=== PATIENT | female | born 1950 | race Caucasian/White ===

== ENCOUNTER 2023-12-17 17:57 | Emergency (ER) | payer OTHER, SELFPAY ==
[2023-12-17] VITALS (8 sets, daily range): BP systolic 153–175; BP diastolic 73–96; BMI 33.6
[2023-12-17 18:20] LABS: % Basophils 0.4 % (0-2); % Eosinophils 3.2 % (0-6); % Immature Granulocytes 0.3 % (0-0.5); % Lymphocytes 35.2 % (20.5-51.1); % Monocytes 9.3 % (1.7-9.3); % Neutrophils 51.6 % (42.2-75.2); Absolute Eosinophils 0.3 10^3/uL (0-0.7); Absolute Lymphocytes 2.8 10^3/uL (1.2-3.4); Absolute Monocytes 0.7 10^3/uL (0.1-0.6); Absolute Neutrophils 4.1 10^3/uL (1.4-6.5); Hematocrit 39.4 % (37.0-47.0); Hemoglobin 13.2 g/dL (12.0-16.0); Mean Corp Hgb Conc. 33.5 g/dL (33.0-37.0); Mean Corpuscular Hgb 26.4 pg (27.0-31.0); Mean Corpuscular Volume 78.8 fL (81.0-99.0); Nucleated Red Blood Cells % 0 %; Platelet Count 232 10^3/uL (130-400); Red Cell Dist. Width 14.1 % (11.5-14.5); White Blood Cell Count 7.9 10^3/uL (4.8-10.8)
[2023-12-17 18:33] LABS: ALT (SGPT) 20 U/L (0-35); AST (SGOT) 28 U/L (14-36); Albumin 4.2 g/dl (3.5-5.0); Alkaline Phosphatase 106 U/L (38-126); Blood Urea Nitrogen 18 mg/dl (7-17); Calcium 9.4 mg/dl (8.4-10.2); Carbon Dioxide 25 mmol/L (22-30); Chloride 106 mmol/L (98-107); Glucose 95 mg/dl (70-99); Sodium 143 mmol/L (135-145); Total Bilirubin 0.5 mg/dl (0.2-1.3); eGFR > 60.00
[2023-12-17 19:49] LABS: Urine Albumin Trace (Neg - Trace); Urine Bilirubin Negative (Negative); Urine Character Clear (Clear); Urine Color Yellow; Urine Glucose Negative (Negative); Urine Ketone Negative (Negative); Urine Leukocyte 1+ (Negative); Urine Nitrite Negative (Negative); Urine Occult Blood 2+ (Negative); Urine Specific Gravity 1.025 (<1.030); Urine Urobilinogen Negative (Neg - 1+)
[2023-12-17 20:05] LABS: Urine Bacteria Moderate (Negative); Urine Calcium Oxalate Crystals Present; Urine Mucus Many; Urine Squamous Cell >30 /LPF (Few)
[2023-12-17] MEDS: TORADOL 15 MG IV (21:35)
--- NOTE | 2023-12-17 23:13 | ED.GENMED ---
History of Present Illness
General
Chief Complaint: Abdominal Pain
Source: patient
Time Seen by Provider: 12/17/23 20:29
History of Present Illness
History of Present Illness:
73-year-old female presents complaining of right flank and right lower abdominal pain starting last evening. Pain is sharp in nature without associated nausea or vomiting. No urinary symptoms. Seen by family doctor today and sent here for
possible appendicitis versus kidney stone. She has never had a kidney stone. She denies a cough pain or shortness of breath. No other complaints
Phy Exam
Physical Exam
Physical Exam:
General: Well-appearing female no acute respiratory distress
HEENT: Normocephalic atraumatic
Heart: Regular rate and rhythm no murmurs
Lungs: Clear no wheeze
Abdomen soft tender to slightly to the right lower quadrant and right costovertebral angle. No guarding rebound normal bowel sounds nondistended extremities: No cyanosis or edema
Skin: Warm no rash
Course
Orders/Labs/Results
Orders:
Orders
12/17/23 18:14
CMP [Comprehensive Metabolic Panel] Urgent
Complete Blood Count/With Diff Urgent
12/17/23 19:35
Urinalysis Reflex To Culture Urgent
Date Specimen was Collected: 12/17/23
Time Specimen was Collected: 19:29
Urine Microscopic Reflex Cult Urgent
Urine Culture Urgent
BERTO Source: U
Specimen Description:
Date Specimen was Collected: 12/17/23
Time Specimen was Collected: 19:29
12/17/23 21:17
CT Abd/pel Without Iv Or Oral Urgent
Comment:
Reason For Exam: right flank and lower quadrant pain
12/17/23 21:26
Ketorolac [Toradol] 15 mg IV NOW STA
Abnormal Lab Results
12/17/23 12/17/23
18:14 19:35
MCV 78.8 L fL
(81.0-99.0)
MCH 26.4 L pg
(27.0-31.0)
Absolute Monos (auto) 0.7 H 10^3/uL
(0.1-0.6)
BUN 18 H mg/dl
(7-17)
Ur Occult Blood Reflex 2+ A
(Negative)
Leukocyte Esterase Rfl 1+ A
(Negative)
Urine RBC 3-6 A /HPF
(0-2)
Urine Bacteria (Reflex) Moderate A
(Negative)
12/17/23 18:14
12/17/23 18:14
Vital Signs
Initial and Last Documented VS:
Initial Vital Signs
Temp Pulse Resp BP Pulse Ox
97.6 F 68 18 175/96 97
12/17/23 18:00 12/17/23 18:00 12/17/23 18:00 12/17/23 18:00 12/17/23 18:00
Last Documented Vital Signs
Temp Pulse Resp BP Pulse Ox
97.7 F 69 20 153/88 97
12/17/23 19:49 12/17/23 22:10 12/17/23 19:27 12/17/23 23:00 12/17/23 19:49
MDM/Problems Addressed
Differential Diagnosis Includes:
Abdominal pain. Consider appendicitis was renal colic versus constipation labs reviewed. Normal white count. Urinalysis with
2+ blood and moderate bacteria however there is greater than 30 squamous cells. Without obvious urinary symptoms could be contaminated specimen will hold off on treating for UTI. CT of the abdomen was performed given the hematuria to evaluate for
kidney stone. CT overall was negative for acute finding. There was several bilateral bibasilar pulmonary nodules that are measuring about 1 cm. The patient was notified of this and was advised to follow-up with her family doctor regarding this.
This is not the source of her abdominal pain however. Patient expresses her desire to go home which I think is reasonable. Recommend ibuprofen or Tylenol for pain.
*Critical Care Note
Total Time (30-74mins, 75-104mins- exclusive of procedures): Not Applicable
ED Attending Note
-
Portions of this chart may have been created with voice recognition software.� Occasional wrong word or��sound alike� substitutions may have occurred due to the inherent limitations of voice recognition software.
Discharge Plan
Departure
Patient Disposition: Home (Routine Discharge)
Date of Disposition: 12/17/23
Time of Disposition: 23:16
Patient with high blood pressure during this ER visit?: No
Discharge Problem:
Abdominal pain, Lung nodule
Instructions: Abdominal Pain
Referrals:
David Mccray DO [Family Provider] -
Activity Restrictions/Additional Instructions:
Please use ibuprofen or Tylenol for pain. Stay hydrated. Return here for increasing pain vomiting fever or other concerning finding. As discussed, there are some lung nodules noted on CT scan today. Please follow-up with your family doctor
regarding this.
Interventions
Interventions:
*Risk Screen - Suicide Last Done: 12/17/23 19:46
*General Assessment Last Done: 12/17/23 19:46
*Neglect/Abuse Screening Last Done: 12/17/23 19:46
*ED COVID-19 Vaccine History Last Done: 12/17/23 19:46
VA-Ddjrgj-Ifjjticywt Assessment Last Done: 12/17/23 19:46
Discharge Date and Time
Print Language: SWISS
--- NOTE | 2023-12-22 08:56 | OID.L.PAT ---
Pulmonary Nodule Pat Letter
- -
12/22/23
DEJAN GONZALEZ
[address]
[place], [place]
Darci WYLIE,
A pulmonary nodule was seen on an imaging study done by [facility]. This was reviewed by the [facility] Pulmonary Nodule Advisory Board and the following recommendation was made:
Recommendation: PET scan now and follow up with a Transmission Maintenance Supervisor
If you have any questions, please do not hesitate to contact your primary care physician. If you are in need of a Physician, you can go to [email or web address] and click on 'Find a Provider'. Type 'Family Medicine' in the search.
Oncology Nurse Navigator
[facility]
[phone]
--- NOTE | 2023-12-22 08:56 | OID.L.REC ---
Pulmonary Nodule Follow Up
- Recommendation
12/22/23
Pulmonary Nodule Review Recommendations
Your patient, DEJAN GONZALEZ, had a pulmonary nodule seen on an imaging study done on 12/17/23 in the [facility] Emergency Room.
This was reviewed by the [facility] Pulmonary Nodule Advisory Board and the following recommendation was made:
Recommendation: PET scan now and follow up with a Hopper Filler
If you have any questions please do not hesitate to contact us.
Sincerely,
Oncology Nurse Navigator
[facility]
[phone]
== END 2023-12-17 23:25 | disposition home or self-care (01) ==
LOC: EMR 17:57
PROVIDERS: Emergency Medicine; Student in an Organized Health Care Education/Training Program; EMERGENCY PHYSICIAN Emergency Medicine; FAMILY PHYSICIAN Family Medicine
DX: R10.31 Right lower quadrant pain (principal); R91.8 Other nonspecific abnormal finding of lung field
CPT/HCPCS: 99284; 74176; 80053; 81003; 81015; 85025; 87086

== ENCOUNTER → 2024-01-13 06:34 | Outpatient (REF) | payer OTHER, SELFPAY | LOC: RAD 06:34 | PROVIDERS: ATTENDING PHYSICIAN Internal Medicine Critical Care Medicine; FAMILY PHYSICIAN Family Medicine | DX: R91.8 Other nonspecific abnormal finding of lung field (principal) | CPT/HCPCS: 71250 ==